=== PATIENT | female | born 1985 | race Two or more races ===

== ENCOUNTER → 2024-08-19 | Outpatient (CLI) | payer OTHER, SELFPAY ==
--- NOTE | 2024-08-19 11:00 | XR_ITS ---
Examination: Humerus 2 views left Technique: Humerus, AP lateral 2 views Date and time of exam: August 19 2024-0 3 hours Indications: History subdermal implantation contraceptive device Findings: 41 mm subdermal linear foreign body noted lower medial upper arm Impression: Subdural contraceptive device is identified in the lower medial portion of the left upper arm
== END | disposition home or self-care (01) ==
PROVIDERS: PCP Internal Medicine; Referring Provider Physician Assistant Medical; Visit Provider Physician Assistant Medical
DX: Z30.49 Encounter for surveillance of other contraceptives (principal)
CPT/HCPCS: 73060

== ENCOUNTER → 2024-08-29 | Outpatient (CLI) | payer OTHER, SELFPAY ==
--- NOTE | 2024-08-29 16:51 | XR_ITS ---
EXAMINATION: Cervical spine, 5 views Technique: Cervical spine AP, AP odontoid, lateral, bilateral obliques, 5 views Exam date and time: August 29, 2024 1725 hours INDICATIONS: Neck pain beginning 2 days ago. FINDINGS: Straightening normal cervical lordosis No cervical fracture Intact odontoid No cervical disc narrowing No neural foraminal stenosis IMPRESSION: No cervical fracture or significant arthritic change
--- NOTE | 2024-08-29 16:51 | XR_ITS ---
Examination: Shoulder,right, 3 views Technique: Shoulder AP internal rotation, AP external rotation, Y view shoulder, 3 views Exam date and time :August 29, 2024 1725 hours INDICATIONS: Right shoulder pain beginning 2 weeks ago. FINDINGS: Mild osteopenia Moderate narrowing glenohumeral joint No shoulder fracture or dislocation No calcific tendinitis IMPRESSION: Moderate narrowing glenohumeral joint
== END | disposition home or self-care (01) ==
LOC: CDIM 16:41
PROVIDERS: PCP Internal Medicine; Referring Provider Internal Medicine; Visit Provider Internal Medicine
DX: M25.811 Other specified joint disorders, right shoulder (principal); M54.2 Cervicalgia
CPT/HCPCS: 72050; 73030

== ENCOUNTER → 2024-09-11 | Outpatient (CLI) | payer OTHER, SELFPAY ==
--- NOTE | 2024-09-11 | XR_ITS ---
Examination: Screening digital mammography, bilateral Computer aided detection 3-D breast Tomosynthesis, bilateral Date and time of exam: September 11, 2024 1318 hrs. No priors Indication: Screening Technique: Nonmagnified MLO, CC views of the breasts to been obtained, reconstructed from 3-D Tomosynthesis images. R2 computer aided detection program utilized for evaluation of suspicious masses and/or abnormal calcifications. 3-D Tomosynthesis images obtained. Findings: The breasts are heterogeneously dense, which may obscure small masses Skin lesion upper right breast Benign calcifications 10 mm focal asymmetry nipple level left breast posterior depth IMPRESSION: BI-RADS Category 0: Incomplete: Need additional imaging evaluation 10 mm focal asymmetry nipple level left breast posterior depth, recommend follow-up spot tomographic views of this asymmetry as well as left breast sonography to complete workup
== END | disposition home or self-care (01) ==
LOC: CDIM 13:03
PROVIDERS: PCP Internal Medicine; Referring Provider Specialist; Visit Provider Specialist
DX: Z12.31 Encounter for screening mammogram for malignant neoplasm of breast (principal); N64.89 Other specified disorders of breast
CPT/HCPCS: 77063; 77067

== ENCOUNTER → 2024-11-10 | Outpatient (CLI) | payer OTHER, SELFPAY ==
--- NOTE | 2024-11-10 12:30 | XR_ITS ---
Examination: Breast ultrasound, unilateral, left Date and time of exam: November 10, 2024 1310 hours INDICATIONS: Mammogram September 11, 2024 10 mm focal asymmetry left breast nipple level Technique: Real-time grimm scale ultrasonographic imaging performed left breast including all 4 quadrants as well as nipple retroareolar and axillary region. Findings: 2:00 oval mass indistinct margins 12 x 5 x 14 mm 3:00 oval mass partially indistinct margins, 12 x 7 x 15 mm IMPRESSION:: BI-RADS Category 4: Suspicious for malignancy Suspicious masses both 2:00 and 3:00 position left breast, biopsy both masses is needed to exclude breast carcinoma These masses are both amenable to ultrasound-guided breast biopsy for diagnosis
--- NOTE | 2024-11-10 13:00 | XR_ITS ---
Examination: Diagnostic digital mammography, unilateral, LEFT Computer aided detection 3-D breast Tomosynthesis, unilateral Date and time of exam: November 10, 2024 at 1324 hours INDICATIONS: Mammogram September 11, 2024 10 mm focal asymmetry nipple level left breast Technique: Nonmagnified MLO, CC views of the left breast have been obtained, reconstructed from 3-D Tomosynthesis images. R2 computer aided detection program utilized for evaluation of suspicious masses and/or abnormal calcifications. 3-D Tomosynthesis images obtained. Findings: The breast is heterogeneously dense, which may obscure small masses No definite suspicious mass However, please see the left breast sonogram today indicating 2:00 nodule 12 x 5 x 14 mm with indistinct margins Impression: BI-RADS category 4: Suspicious for malignancy Left breast sonogram today indicates 2:00 nodule 12 x 5 x 14 mm with indistinct margins, biopsy is needed to exclude breast carcinoma, this nodule is amenable to ultrasound-guided breast biopsy for diagnosis
== END | disposition home or self-care (01) ==
PROVIDERS: PCP Internal Medicine; Referring Provider Specialist; Visit Provider Specialist
DX: R92.342 Mammographic extreme density, left breast (principal); N63.21 Unspecified lump in the left breast, upper outer quadrant; N63.25 Unspecified lump in the left breast, overlapping quadrants
CPT/HCPCS: 76641; 77061; 77065; G0279

== ENCOUNTER 2024-11-21 07:10 | Day surgery (SDC) | payer OTHER, SELFPAY ==
[2024-11-18 09:16] VITALS: BMI 28.5
[2024-11-18 10:25] LABS: Basophils % (Auto) 1 % (0-2.5); Eosinophils # (Auto) 0.1 Thou/mm3 (0.0-0.5); Eosinophils % (Auto) 1 % (0-10); Hematocrit 41.7 % (36.0-46.0); Hemoglobin 14.2 g/dL (12.0-16.0); Immature Granulocytes % (Auto) 0 % (0-0); Immature Granulocytes Auto 0.01 Thou/mm3 (0.00-0.00); Lymphocytes # (Auto) 1.9 Thou/mm3 (1.0-4.8); Lymphocytes % (Auto) 26 % (10-50); Mean Corpuscular HGB Conc 34.1 g/dl (31.0-37.0); Mean Corpuscular Hemoglobin 29.8 pg (25.0-35.0); Mean Corpuscular Volume 87 fL (80-100); Monocytes # (Auto) 0.5 Thou/mm3 (0.0-0.8); Monocytes % (Auto) 6 % (0-12); Neutrophils # (Auto) 4.8 Thou/mm3 (1.8-7.7); Neutrophils % (Auto) 67 % (37-80); Nucleated Red Blood Cell % 0 /100 WBC (0); Platelet Count 225 Thou/mm3 (140-440); RDW Standard Deviation 39.7 fL (36.4-46.3); Red Blood Count 4.77 Miln/mm3 (4.00-5.20); White Blood Count 7.3 Thou/mm3 (3.6-11.0)
[2024-11-18 10:32] LABS: Partial Thromboplastin Time 27.5 Seconds (22.0-36.0); Prothrombin Time 11.4 Seconds (9.0-12.2)
[2024-11-18 10:39] LABS: HCG,Qualitative Serum Negative
[2024-11-18 10:49] LABS: Alanine Aminotransferase 17 U/L (10-49); Albumin, Serum 4.5 gm/dL (3.5-5.0); Albumin/Globulin Ratio 1.9 (1.2-2.2); Alkaline Phosphatase 90 U/L (46-116); Anion Gap 8 (7-16); Aspartate Amino Transferase 18 U/L (0-34); BUN/Creatinine Ratio 16 Ratio (12-20); Bilirubin,Total 0.4 mg/dL (0.3-1.2); Blood Urea Nitrogen 13 mg/dL (9-23); Calcium 9.5 mg/dL (8.3-10.6); Calcium (Corrected) 9.5 mg/dL (8.5-10.1); Carbon Dioxide 26.8 mMol/L (20.0-31.0); Chloride 109 mMol/L (98-107); Creatinine (Component) 0.8 mg/dL (0.6-1.3); Estimated Creatinine Clearance 95.4 mL/min (>60); Globulin 2.4 gm/dL (2.3-3.5); Glucose 101 mg/dL (74-106); Osmolality,Calculated 286 (275-295); Potassium 4.1 mMol/L (3.4-5.1); Sodium 144 mMol/L (136-145); Total Protein 6.9 gm/dL (5.7-8.2); eGFR > 60 See Note
--- NOTE | 2024-11-20 15:01 | SUR.PREOP ---
Message left for pt to come in tomorrow at 0800. Voice message.
[2024-11-21] VITALS (8 sets, daily range): BP systolic 90–127; BP diastolic 68–92; PULSE 64–78; RESP 14–20; TEMP 36.6–36.8; O2SAT 98–100; BMI 28.4
--- NOTE | 2024-11-21 06:00 | XR_ITS ---
Examination: Ultrasound soft tissue extremity TECHNIQUE: Grayscale sonographic images soft tissue left arm Exam date and time: November 21, 2024 0813 hours INDICATIONS: Preop Nexplanon control implant device today FINDINGS: Linear opaque foreign body consistent with implant device is confirmed 4 mm below the skin surface IMPRESSION: Successful localization control implant device
[2024-11-21] MEDS: RINGERS LACTATED 1000 ML 1,000 ML 20 ML IV (08:50)
--- NOTE | 2024-11-21 09:23 | XR_ITS ---
Examination: Ultrasound soft tissue extremity Exam date and time: June 23, 2025 1010 hours INDICATIONS: Operative removal control implant device in the soft tissue left arm TECHNIQUE AND FINDINGS: Sonographic images obtained for localization and surgical removal Nexplanon implant device in the soft tissue left arm IMPRESSION: Sonographic images obtained for localization and removal control implant device in the soft tissue left arm
--- NOTE | 2024-11-21 09:33 | SUR.PREOP ---
Patient expressed gratitude for prayer before their procedure.
--- NOTE | 2024-11-21 10:18 | PD.SUROPNT ---
Date of Procedure 11/21/24 Pre Op Diagnosis Nexplanon implantation left upper arm Post Op Diagnosis Same Procedure Removal of the Nexplanon in Plant from the left upper arm using ultrasound guidance Findings Patient had Nexplanon located in the subcutaneous tissue on the left upper arm Procedure Description Of the patient brought the operating room she was given sedation then her left arm was prepped with ChloraPrep solution draped in sterile manner. Timeout was performed. Then injected half percent Marcaine over the inner aspect where marking was made by the traffic analysis technician. A small vertical incision was made for about a centimeters in length and using fine hemostat I was able to remove the Nexplanon implant. Skin was closed with interrupted 5-0 nylon sutures and a dressing was applied. Patient tolerated the procedure well. Anesthesia MAC Pathology / specimen None Estimated Blood Loss 10 Surgeon Miguel Lofton MD Surgical Staff Operation Date: 11/21/24 10:15 Case Staff TAX ACCOUNTANT: Blade Bolaños RNglass wool blanket machine feeder: Cindi Cannon
--- NOTE | 2024-11-21 10:59 | SUR.PHASEII ---
1027: Pt received in [facility] via gurney. Report from Jack THOMAS and Blade TERRAZAS. Pt groggy. Easily aroused then drifts back to sleep. Resp even, unlabored. VS stable. Dressing to posterior left upper arm dry, clean, intact with no swelling, hematoma. No c/o pain, discomfort. 1050: Pt requesting bed prabhakar stating she needed to void. Bed prabhakar placed. VS stable. Dressing dry, clean, intact. Pt wiggles fingers. Denies pain.
--- NOTE | 2024-11-21 11:44 | SUR.PHASEII ---
1055: Pt voided 250cc clear, yellow urine. 1100: VS stable. Dressing unchanged. Denies pain. Pt sitting up tolerating po fluids with no difficulty swallowing and no n/v. 1130: Pt fully awake, oriented x3. VS stable. Dressing unchanged. Denies pain. Pt dressed and assisted to transport chair. Ambulation steady. Pt and daughter stated understanding of discharge instructions. Pt discharged from [facility] in stable condition.
== END 2024-11-21 11:30 | disposition home or self-care (01) ==
PROVIDERS: Anesthesiology; PCP Internal Medicine; Referring Provider Surgery; Visit Provider Surgery
PROC: (CPT 11982; principal; 2024-11-21 10:00)
DX: Z30.46 Encounter for surveillance of implantable subdermal contraceptive (principal)
CPT/HCPCS: 11982; 36415; 76882; 76998; 80053; 84703; 85025; 85610; 85730; J2250; J2704; J3010; J3490; J7120

== ENCOUNTER → 2025-02-17 | Outpatient (CLI) | payer OTHER, SELFPAY ==
--- NOTE | 2025-02-17 | XR_ITS ---
Examinations: Ultrasound-guided percutaneous breast biopsy, left breast 3:00 nodule Left breast sonography limited. Exam date and time: February 17, 2025 at 10:15 AM INDICATIONS: BI-RADS 4 suspicious nodule 3:00 position left breast on left breast sonogram November 10, 2024. Informed consent provided. Technique: A timeout was completed verifying correct patient, procedure, site, positioning, and special equipment if applicable Informed consent provided. The patient was placed in a supine position for the breast biopsy. Sonographic images of the breast were performed for localization of the suspicious nodule The patient's breast was prepped and draped in sterile fashion. Maximum sterile barrier technique, hand hygiene, ultrasound sterile technique 1% lidocaine was used to anesthetize the skin and breast adjacent to the suspicious nodule. Utilizing ultrasonographic guidance, 8 core biopsies were obtained of the suspicious nodule utilizing an 18-gauge BioPince needle. The specimens appears satisfactory. Estimated blood loss 3 cc. The patient tolerated the procedure well and there were no complications. Impression: Successful ultrasound-guided percutaneous breast biopsy, left breast 3:00 nodule.
[2025-02-17 09:09] LABS: Basophils # (Auto) 0.0 Thou/mm3 (0.0-0.2); Basophils % (Auto) 0 % (0-2.5); Eosinophils # (Auto) 0.1 Thou/mm3 (0.0-0.5); Eosinophils % (Auto) 1 % (0-10); Hematocrit 40.7 % (36.0-46.0); Hemoglobin 13.8 g/dL (12.0-16.0); Immature Granulocytes Auto 0.05 Thou/mm3 (0.00-0.00); Lymphocytes # (Auto) 2.3 Thou/mm3 (1.0-4.8); Lymphocytes % (Auto) 22 % (10-50); Mean Corpuscular HGB Conc 33.9 g/dl (31.0-37.0); Mean Corpuscular Hemoglobin 30.5 pg (25.0-35.0); Mean Corpuscular Volume 90 fL (80-100); Monocytes # (Auto) 0.8 Thou/mm3 (0.0-0.8); Monocytes % (Auto) 7 % (0-12); Neutrophils # (Auto) 7.2 Thou/mm3 (1.8-7.7); Neutrophils % (Auto) 68 % (37-80); Nucleated Red Blood Cell # 0.00 Thou/mm3 (0.00-0.00); Nucleated Red Blood Cell % 0 /100 WBC (0); Platelet Count 227 Thou/mm3 (140-440); RDW Standard Deviation 41.1 fL (36.4-46.3); Red Blood Count 4.52 Miln/mm3 (4.00-5.20); White Blood Count 10.5 Thou/mm3 (3.6-11.0)
[2025-02-17 09:24] LABS: HCG,Qualitative Serum Negative; INR 1.0 (0.9-1.3); Partial Thromboplastin Time 29.4 Seconds (22.0-36.0); Prothrombin Time 11.2 Seconds (9.0-12.2)
--- NOTE | 2025-02-17 09:30 | XR_ITS ---
Examinations: Ultrasound-guided percutaneous breast biopsy, left breast 2:00 nodule Left breast sonography limited. Exam date and time: February 17, 2025 1008 hours INDICATIONS: Left breast sonogram November 10, 2024 BI-RADS 4 suspicious mass 2:00 position left breast. Informed consent provided. Technique: A timeout was completed verifying correct patient, procedure, site, positioning, and special equipment if applicable Informed consent provided. The patient was placed in a supine position for the breast biopsy. Sonographic images of the breast were performed for localization of the suspicious nodule The patient's breast was prepped and draped in sterile fashion. Maximum sterile barrier technique, hand hygiene, ultrasound sterile technique 1% lidocaine was used to anesthetize the skin and breast adjacent to the suspicious nodule. Utilizing ultrasonographic guidance, 8 core biopsies were obtained of the suspicious nodule utilizing an 18-gauge BioPince needle. The specimens appears satisfactory. US guided breast biopsy marker placement. Estimated blood loss 3 cc. The patient tolerated the procedure well and there were no complications. Impression: Successful ultrasound-guided percutaneous breast biopsy, 2:00 nodule. Ultrasound guided breast biopsy marker placement.
== END | disposition home or self-care (01) ==
PROVIDERS: Radiology Diagnostic Radiology; PCP Internal Medicine; Referring Provider Specialist; Visit Provider Specialist
DX: R92.8 Other abnormal and inconclusive findings on diagnostic imaging of breast (principal); D24.2 Benign neoplasm of left breast
CPT/HCPCS: 19083; 19084; 36415; 84703; 85025; 85610; 85730; A4648